=== PATIENT | male | born 1985 | race Caucasian/White ===

== ENCOUNTER 2018-07-01 04:00 | Emergency (ER) | payer OTHER ==
[~2018-07-01] VITALS: Ht 190.5 cm; Wt 117.9 kg
[2018-07-01] MEDS ORDERED: TYLENOL325 MG PO (04:14)
[2018-07-01 04:15] LABS: URINE BILIRUBIN NEGATIVE (Negative); URINE BLOOD NEGATIVE (Negative); URINE CLARITY CLEAR; URINE COLOR YELLOW; URINE GLUCOSE-RANDOM NEGATIVE (Negative); URINE KETONES NEGATIVE (Negative); URINE LEUKOCYTES-REFLEX NEGATIVE (Negative); URINE NITRITE-REFLEX NEGATIVE (Negative); URINE PROTEIN TRACE (Negative); URINE SPECIFIC GRAVITY >= 1.030 (1.005-1.030); URINE UROBILINOGEN 0.2 E.U./dl (0.2-1.0)
[2018-07-01] MEDS ORDERED: IBUPROFEN 600600 M1 PO (04:15)
[2018-07-01] MEDS ORDERED: CIPROFLOXACIN500 M1 PO (04:23)
[2018-07-01] MEDS ORDERED: PYRIDIUM200 MG PO (04:23)
[2018-07-01] MEDS ORDERED: FLOMAX0.4 MG PO (04:23)
[2018-07-01 05:00] LABS: ABSOLUTE BASOPHILS 0.1 thou/uL (0.0-0.2); ABSOLUTE EOSINOPHILS 0.2 thou/uL (0.0-0.7); ABSOLUTE LYMPHOCYTES 3.6 thou/uL (0.8-5.3); ABSOLUTE MONOCYTES 0.5 thou/uL (0.0-1.2); ABSOLUTE NEUTROPHILS 2.9 thou/uL (1.6-8.1); BASOPHILS 0.7 %; EOSINOPHILS 2.7 %; HEMATOCRIT 42.7 % (42.0-52.0); HEMOGLOBIN 14.1 gm/dL (14.0-18.0); LYMPHOCYTES 50.3 %; MCH 28.5 pg (26.0-34.0); MCHC 33.1 g/dL (28.0-37.0); MONOCYTES 6.4 %; MPV 7.6 fl. (7.2-11.1); NUCLEATED RBCS 0 /100WBC; PLATELET COUNT* 212 thou/uL (150-400); POLYS 39.9 %; RBC 4.96 mil/uL (4.50-6.00); RDW-CV 13.1 % (10.5-14.5); WBC 7.2 thou/uL (4.0-11.0)
[2018-07-01 05:07] LABS: CALCIUM 9.2 mg/dL (8.5-10.1); POTASSIUM 4.2 mmol/L (3.5-5.1)
[2018-07-01 05:29] VITALS: BP 140/84
[2018-07-04 12:10] LABS: FREE PSA 0.06 ng/mL
== END 2018-07-01 05:30 | disposition home or self-care (01) ==
LOC: M.ERS 04:00
PROVIDERS: Emergency Medicine
DX: R30.0 Dysuria (principal); Z90.89 Acquired absence of other organs